=== PATIENT | male | born 1945 | race Caucasian/White ===

== ENCOUNTER 2024-09-10 09:33 | Inpatient (IN) | payer OTHER ==
--- OUTSIDE RECORDS SUMMARY | 2024-09-10 09:36 | XMS REPORT | Continuity of Care Document ---
Author Name Unknown Address [address] [facility] [address] th[address] Address [address] [facility] 1 495 [place] [address] Care Team Providers Care Sas Developer Analyst Name Role Phone HARDEEP VASQUEZ Attending Clinician Unavailable Encounters Start Date/Time End Date/Time Encounter Type Admission Type Attending Clinicians Care Facility Care Department Encounter ID Source 2021-08-02 12:48:07 Outpatient HARDEEP VASQUEZ [facility] [id number] [facility]
--- NOTE | 2024-09-10 10:20 | RAD REPORT ---
EXAMINATION: US BILATERAL LOWER EXTREMITY VENOUS DOPPLER CLINICAL INDICATION: SWELLING TECHNIQUE: Complete bilateral duplex sonography of the BILATERAL lower extremity veins was performed. The examination included compression for vein patency, color Doppler imaging and flow augmentation in response to distal compression of the distal external iliac, common femoral, femoral, popliteal, t ibial, and great and small saphenous veins. COMPARISON: No prior exam. FINDINGS: Duplex sonography testing of the veins of the BILATERAL lower extremity was performed. Color flow fadi ging shows all veins to be compressible with [id number] color filling. Pulsatile and phasic flow is present within all lower extremity deep and superficial veins examined. IMPRESSION: There is no deep vein or superficial vein thrombosis.
[2024-09-10] MEDS ORDERED: FUROSEMIDE 40 MG/4 ML VIAL ONE ×2 (10:56→16:41)
[2024-09-10 11:12] LABS: Absolute Basophils 0.1 K/uL (0-0.5); Absolute Eosinophils 0.1 K/uL (0-0.5); Absolute Lymphocytes (CBC) 1.3 K/uL (0.7-4.9); Absolute Monocytes 1.2 K/uL (0.1-1.3); Absolute Neutrophil 4.6 K/uL (1.8-8.0); Basophils % 1.1 % (0-1.3); Hematocrit 43.9 % (39.6-49.0); Hemoglobin 15.2 g/dL (13.6-17.9); Lymphocytes % 17.4 % (15.3-44.8); MCH 32.9 pg (27.0-35.0); MCHC 34.7 g/dL (32.0-36.0); MCV 94.7 fL (80-100); MPV 8.9 fL (7.6-11.3); Monocytes % 16.4 % (3.3-12.3); Neutrophils % 63.1 % (41.7-73.7); Platelets 185 thou/uL (152-406); RBC Red Blood Cell Count 4.63 M/uL (4.33-5.43); Red Cell Distribution Width 14.2 % (12.1-15.2)
[2024-09-10 11:18] LABS: PT Prothrombin Time 13.2 SECONDS (10.0-13.0); PTT, Activated Partial Thromb 30.4 SECONDS (24.3-36.9); Protime INR 1.17
[2024-09-10 11:30] LABS: Albumin 2.7 g/dL (3.4-5.0); Albumin/Globulin Ratio 0.5 (1.1-1.8); Bilirubin Total 0.8 mg/dL (0.2-1.0); Globulin 5.8 g/dL (2.3-3.5); Protein, Total 8.5 g/dL (6.4-8.2)
--- NOTE | 2024-09-10 12:06 | EDPHYS ---
Physician Documentation [facility] Name: Haroon Montana Age: 79 yrs Sex: Male : 1945 Arrival Date: 09/10/2024 Time: 09:33 Bed 14 Private MD: ED Physician Naseem Rowe HPI: 09/10 09:57 This 79 yrs old Male presents to ER via Wheelchair with complaints of Leg Swelling. rn 09:57 The patient presents with pain, swelling. The complaints affect the Right lower rn extremity. Modifying factors: The symptoms are alleviated by nothing. the symptoms are aggravated by nothing. Severity of symptoms: At their worst the symptoms were moderate, in the emergency department the symptoms are unchanged. The patient has experienced similar episodes in the past. Patient reports chronic swelling of both legs, lately he has noticed increased redness and warmth to the right lower extremity with drainage. Patient reports socks are soaked with fluid. Reports chills but no fever.. Historical: - Allergies: 09:55 No Known Allergies; ss - PMHx: 09:55 Hypertension; Hypercholesterolemia; pre diabetic; ss - PSHx: 09:56 hernia repair; ss - Immunization history:: Adult Immunizations unknown. - Infectious Disease History:: Denies. - Family history:: not pertinent. - Hospitalizations: : No recent hospitalization is reported. - Social history:: Smoking status: unknown. ROS: 09:57 Constitutional: Negative for fever, positive for chills Cardiovascular: Negative for rn chest pain, palpitations, and edema, Respiratory: Negative for shortness of breath, cough, wheezing, and pleuritic chest pain, Abdomen/GI: Negative for abdominal pain, nausea, vomiting, diarrhea, and constipation, MS/Extremity: Positive for bilateral lower extremity swelling and edema. Positive for warmth Neuro: Negative for headache, weakness, numbness, tingling, and seizure, Exam: 09:57 Constitutional: This is a well developed, well nourished patient who is awake, alert, rn and in no acute distress. Cardiovascular: Tachycardic, irregular Respiratory: Lungs have equal breath sounds bilaterally, clear to auscultation and percussion. No rales, rhonchi or wheezes noted. No increased work of breathing, no retractions or nasal flaring. Abdomen/GI: Soft, non-tender MS/ Extremity: No cyanosis. Right lower extremity increased circumference with redness and warmth compared to right lower extremity. Nonpitting edema. Right lower extremity moist with transudative fluid Neuro: Awake and alert, GCS 15 16:44 ECG was reviewed by the Attending Physician. rn Vital Signs: 09:51 Pulse 79; Resp 18; Temp 98.3(O); Pulse Ox 98% on R/A; Weight 121.56 kg; Height 5 ft. 9 ss in. ; Pain 9/10; 11:00 BP 144 / 68; Pulse 105; Resp 19; Pulse Ox 88% on R/A; Pain 10/10; ap3 11:08 Pulse Ox 96% on 2 lpm NC; ap3 12:56 BP 120 / 93; Pulse 120; Resp 19; Pulse Ox 97% on 2 lpm NC; ap3 09:51 Body Mass Index 39.58 (121.56 kg, 175.26 cm) ss 09:51 Pain Scale: Adult ss 11:00 Pain Scale: Adult ap3 11:00 placed patient on 2 liters nasal canula ap3 MDM: 09:39 Medical Screening Exam initiated rn 12:04 Differential diagnosis: Cellulitis, DVT, lymphedema. Data reviewed: vital signs, nurses rn notes, lab test result(s), radiologic studies, doppler, and as a result, I will admit patient. Consideration of Admission/Observation Patient was admitted/placed on observation. Escalation of care including admission/observation considered. Care significantly affected by the following chronic conditions: Diabetes, Hypertension. Counseling: I had a detailed discussion with the patient and/or guardian regarding the historical points, exam findings, and any diagnostic results supporting the discharge/admit diagnosis, lab results, radiology results, the need for further work-up and treatment in the hospital. 09/10 09:55 Order name: Blood Culture Adult (2) rn 09/10 09:55 Order name: CBC with Diff; Complete Time: 11:15 rn 09/10 09:55 Order name: CMP; Complete Time: 11:54 rn 09/10 09:55 Order name: Lactate w/ 2H reflex if indic.; Complete Time: 11:54 rn 09/10 09:55 Order name: Protime (+inr); Complete Time: 11:54 rn 09/10 09:55 Order name: Ptt, Activated; Complete Time: 11:54 rn 09/10 09:55 Order name: BNP; Complete Time: 11:54 rn / 13:35 Order name: Hemoglobin A1c EDMS 03/04 13:35 Order name: Thyroid Stimulating Hormone EDMS 03/ 13:35 Order name: CBC with Automated Diff EDMS 03/04 13:35 Order name: CBC with Automated Diff EDMS 03/04 13:35 Order name: CBC with Automated Diff EDMS 03/04 13:35 Order name: CBC with Automated Diff EDMS 03/04 13:35 Order name: CBC with Automated Diff EDMS 03/04 13:35 Order name: CBC with Automated Diff EDMS 03/04 13:35 Order name: Comprehensive Metabolic Panel EDMS 03/ 13:35 Order name: Comprehensive Metabolic Panel EDMS 03/ 13:35 Order name: Comprehensive Metabolic Panel EDMS 03/04 13:35 Order name: Comprehensive Metabolic Panel EDMS 03/04 13:35 Order name: Comprehensive Metabolic Panel EDMS 03/04 13:35 Order name: Comprehensive Metabolic Panel EDMS 03/ 13:35 Order name: Lipid Profile EDMS 03/ 13:35 Order name: Lipid Profile EDMS 03/ 09:56 Order name: Extrem Venous W Compression Rohan US; Complete Time: 10:22 rn 09/10 13:47 Order name: Echo with Doppler EDMS / 13:35 Order name: [facility] EDMS / 09:55 Order name: Accucheck; Complete Time: 11:06 rn 09/10 09:55 Order name: Cardiac monitoring; Complete Time: 11:06 rn 09/10 09:55 Order name: EKG - Nurse/Tech; Complete Time: 11:06 rn 09/10 09:55 Order name: IV Saline Lock - Large Bore; Complete Time: 11:06 rn 09/10 09:55 Order name: Labs collected and sent; Complete Time: 11:06 rn 09/10 09:55 Order name: O2 Per Protocol; Complete Time: 11:06 rn 09/10 09:55 Order name: O2 Sat Monitoring; Complete Time: 11:06 rn 09/10 09:55 Order name: Vital Signs; Complete Time: 11:07 rn EC:44 Rate is 124 beats/min. Rhythm is irregular. QRS Hope is Normal. QT interval is normal. rn No Q waves. T waves are Normal. No ST changes noted. Clinical impression: Atrial Fibrillation. Interpreted by me. Reviewed by me. Administered Medications: 11:06 Drug: Furosemide IVP 40 mg IVP once; give over 2 minutes Route: IVP; Site: right ap3 antecubital; 13:59 Follow up: Response: No adverse reaction ap3 12:45 Drug: Magnesium Sulfate IVPB 1 grams IVPB once over 1 hrs Route: IVPB; Infused Over: 1 ap3 hrs; Site: right antecubital; 13:59 Follow up: IV Status: Completed infusion; IV Intake: 100ml ap3 13:59 Drug: vancoMYCIN IVPB 1 grams IVPB once over 2 hrs Route: IVPB; Infused Over: 2 hrs; ap3 Site: right antecubital; 22:13 Follow up: IV Status: Completed infusion; IV Intake: 250ml rg5 Disposition Summary: 09/10/24 12:05 Hospitalization Ordered Notes: Hospitalization Status: Inpatient Admission rn Provider: Estuardo Nowak rn Condition: Stable rn Problem: new rn Symptoms: are unchanged rn Bed/Room Type: Standard rn Location: Telemetry/MedSurg (Inpatient)(09/10/24 20:48) cg Room Assignment: 208(09/10/24 20:48) cg Diagnosis - Cellulitis of right lower limb rn - Lymphedema, not elsewhere classified rn Forms: - Medication Reconciliation Form rn - SBAR form rn - Leadership Thank You Letter rn Signatures: Dispatcher [employer] EDNE Naseem Rowe MD MD rn Blanchard, Shelby, RN RN Eliz Cherry RN RN Mary Fischer RN RN ap3 Kailyn Kincaid RN RN [email or web address] Clay Montero RN rg5 Corrections: (The following items were deleted from the chart) 09: 09:55 BLOOD CULTURE*+BA.LAB.BRZ ordered. EDMS EDMS 09:56 09:55 CBC+H.LAB.BRZ ordered. EDMS EDMS 09:56 09:55 COMPREHENSIVE METABOLIC PANEL+C.LAB.BRZ ordered. EDMS EDMS 09:56 09:55 LACTATE+C.LAB.BRZ ordered. EDMS EDMS 09:56 09:56 PROTIME (+INR)+COAG.LAB.BRZ ordered. EDMS EDMS 09: 09:56 PTT, ACTIVATED+COAG.LAB.BRZ ordered. EDMS EDMS 09:56 09:56 PROBNP+C.LAB.BRZ ordered. EDNE EDMS 12:04 09:57 Constitutional: This is a well developed, well nourished patient who is awake, rn alert, and in no acute distress. Cardiovascular: Regular rate and rhythm. No pulse deficits. Respiratory: Lungs have equal breath sounds bilaterally, clear to auscultation and percussion. No rales, rhonchi or wheezes noted. No increased work of breathing, no retractions or nasal flaring. Abdomen/GI: Soft, non-tender MS/ Extremity: No cyanosis. Right lower extremity increased circumference with redness and warmth compared to right lower extremity. Nonpitting edema. Right lower extremity moist with transudative fluid Neuro: Awake and alert, GCS 15 rn 13:48 12:05 Telemetry/MedSurg (Inpatient) rn kb3 13:48 12:05 rn kb3 20:48 13:48 [facility] ER HOLD kb3 cg 20:48 13:48 ERHOLD- kb3 cg
--- NOTE | 2024-09-10 12:06 | ER ---
Nurse's Notes [facility] Name: Haroon Montana Age: 79 yrs Sex: Male : 1945 Arrival Date: 09/10/2024 Time: 09:33 Bed 14 Private MD: Diagnosis: Cellulitis of right lower limb;Lymphedema, not elsewhere classified Presentation: 09/10 09:51 Chief complaint: Patient states: bilateral leg swelling, redness and pain x 2-3 months. ss Coronavirus screen: Client denies travel out of the [place] in the last 14 days. Ebola Screen: Patient denies exposure to infectious person. Patient denies travel to an Ebola-affected area in the 21 days before illness onset. Initial Sepsis Screen: Does the patient meet any 2 criteria? No. Patient's initial sepsis screen is negative. Does the patient have a suspected source of infection? No. Patient's initial sepsis screen is negative. Risk Assessment: Do you want to hurt yourself or someone else? Patient reports no desire to harm self or others. Onset of symptoms is unknown. 09:51 Method Of Arrival: Wheelchair ss 09:51 Acuity: SILVIO 3 ss Historical: - Allergies: 09:55 No Known Allergies; ss - PMHx: 09:55 Hypertension; Hypercholesterolemia; pre diabetic; ss - PSHx: 09:56 hernia repair; ss - Immunization history:: Adult Immunizations unknown. - Infectious Disease History:: Denies. - Family history:: not pertinent. - Hospitalizations: : No recent hospitalization is reported. - Social history:: Smoking status: unknown. Screenin:31 Abuse screen: Denies threats or abuse. Nutritional screening: No deficits noted. ap3 Tuberculosis screening: No symptoms or risk factors identified. 12:57 [facility] ED Fall Risk Assessment (Adult) History of falling in the last 3 months, ap3 including since admission No falls in past 3 months (0 pts) Confusion or Disorientation No (0 pts) Intoxicated or Sedated No (0 pts) Impaired Gait Yes (1 pt) Mobility Assist Device Used Yes (1 pt) Altered Elimination No (0 pt) Score/Fall Risk Level 0 - 2 = Low Risk Oriented to surroundings, Maintained a safe environment, Educated pt \T\ family on fall prevention, incl call for assistance when getting out of bed, Assessed \T\ reinforced patient's understanding of fall precautions, Hourly rounding (assess needs \T\ fall precautionary measures) done, Used ambulatory aids as needed (educated on \T\ assisted with). Assessment: 11:30 General: Appears uncomfortable, Behavior is calm, cooperative, appropriate for age. ap3 Pain: Complains of pain in right leg and left leg Pain currently is 10 out of 10 on a pain scale. Neuro: Level of Consciousness is awake, alert, obeys commands, Oriented to person, place, time, situation. Cardiovascular: Patient's skin is warm and dry. Respiratory: Airway is patent Respiratory effort is even, unlabored, Respiratory pattern is regular, symmetrical. Derm: Skin is red, swollen in bilateral extremities. Vital Signs: 09:51 Pulse 79; Resp 18; Temp 98.3(O); Pulse Ox 98% on R/A; Weight 121.56 kg; Height 5 ft. 9 ss in. ; Pain 9/10; 11:00 BP 144 / 68; Pulse 105; Resp 19; Pulse Ox 88% on R/A; Pain 10/10; ap3 11:08 Pulse Ox 96% on 2 lpm NC; ap3 12:56 BP 120 / 93; Pulse 120; Resp 19; Pulse Ox 97% on 2 lpm NC; ap3 09:51 Body Mass Index 39.58 (121.56 kg, 175.26 cm) ss 09:51 Pain Scale: Adult ss 11:00 Pain Scale: Adult ap3 11:00 placed patient on 2 liters nasal canula ap3 ED Course: 09:38 Patient arrived in ED. mr 09:39 Naseem Rowe MD is Attending Physician. rn 09:55 Triage completed. ss 09:55 Arm band placed on right wrist. ss 10:18 Extrem Venous W Compression Rohan US In Process Unspecified. EDMS 11:05 Mary Fischer, SANTOS is Primary Nurse. ap3 11:05 EKG done, by ED staff, reviewed by Naseem Rowe MD. Inserted saline lock: 22 gauge in ap3 right antecubital area, using aseptic technique. Blood collected. Flushed with 10 mL NS. 11:06 Bed in low position. Call light in reach. Side rails up X2. Adult w/ patient. Client ap3 placed on continuous cardiac and pulse oximetry monitoring. NIBP monitoring applied. panel monitor on. Pulse ox on. NIBP on. Door closed. Noise minimized. Warm blanket given. Pillow given. 12:05 Estuardo Nowak PA is Hospitalizing Provider. rn 12:56 Admitting physician to see patient. ap3 12:57 Provided Education on: medications prior to administration. ap3 15:03 No provider procedures requiring assistance completed. Patient admitted, IV remains in ap3 place. Administered Medications: 11:06 Drug: Furosemide IVP 40 mg IVP once; give over 2 minutes Route: IVP; Site: right ap3 antecubital; 13:59 Follow up: Response: No adverse reaction ap3 12:45 Drug: Magnesium Sulfate IVPB 1 grams IVPB once over 1 hrs Route: IVPB; Infused Over: 1 ap3 hrs; Site: right antecubital; 13:59 Follow up: IV Status: Completed infusion; IV Intake: 100ml ap3 13:59 Drug: vancoMYCIN IVPB 1 grams IVPB once over 2 hrs Route: IVPB; Infused Over: 2 hrs; ap3 Site: right antecubital; 22:13 Follow up: IV Status: Completed infusion; IV Intake: 250ml rg5 Medication: 12:57 VIS not applicable for this client. ap3 Intake: 13:59 IV: 100ml; Total: 100ml. ap3 22:13 IV: 250ml; Total: 350ml. rg5 Outcome: 12:05 Decision to Hospitalize by Provider. rn 15:03 Admitted to ER Hold. Please see [facility] for further documentation. ap3 15:03 Condition: good 15:03 Discharge instructions given to patient, family, Instructed on the need for admit, 22:13 Patient left the ED. rg5 Signatures: Dispatcher [employer] EDLA Radha Robbins, Reg Reg mr Naseem Rowe MD MD rn Blanchard, Shelby, RN RN ss Prokisch, Amanda, RN RN ap3 Clay Montero RN RN rg5 Corrections: (The following items were deleted from the chart) 11:07 11:07 BP 144 / 68; Pulse 105bpm; Resp 19bpm; Pulse Ox 88% RA; Pain 10/10, Adult; placed ap3 patient on 2 liters nasal canula; ap3
[2024-09-10] MEDS ORDERED: NA CHLORIDE 0.9% 250 ML ONE ×2 (12:33→16:11)
[2024-09-10] MEDS ORDERED: VANCOMYCIN 1 GM/VIAL ONE ×2 (12:33→16:11)
[2024-09-10] MEDS ORDERED: MAGNESIUM SULFATE 1 gm IVPB 1 GM/100 ML BAG IV ONE (12:33)
[2024-09-10] MEDS ORDERED: ACETAMINOPHEN 500 MG TAB PO PRN (13:28)
[2024-09-10] MEDS ORDERED: ONDANSETRON 4 MG/2 ML VIAL IV PRN (13:28)
--- NOTE | 2024-09-10 13:44 | P.HP ---
Certification for Inpatient With expected LOS: >2 Midnights Patient will require the following post-hospital care: None Practitioner: I am a practitioner with admitting privileges, knowledge of patient current condition, hospital course, and medical plan of care. Services: Services provided to patient in accordance with Admission requirements found in Title 42 Section 412.3 of the Code of Federal Regulations Patient History Date of Service: 09/10/24 Reason for admission: Cellulitis History of Present Illness: 79-year-old patient with history of hypertension, off medications, hyperlipidemia, and prediabetes, presented with bilateral lower extremity pain and redness, on further questioning, he has chronic bilateral lower extremity edema, for the last 1 month or so right leg is more swollen than the left leg, started draining approximately 1 month back on the right leg with small open wound, complaining of bilateral leg pain as well but the pain is getting worse in the last 2 weeks, he also noticed redness 2 days back on the right leg so he present to the emergency room, he was found to have cellulitis so we were asked to admit him. No headache or blackouts. No double vision or blurry vision. No cough or sputum production. No chest pain or shortness of breath. No nausea or vomiting. No abdominal pain. No constipation or diarrhea. No blood in the urine or stool. No fever. No joint pains. No recent change in the weight. Review of systems: All other 10 point review of systems are negative other than as mentioned above. Allergies and medications: Reviewed, as per med rec EMR. Past medical history: Hypertension but off medications, hyperlipidemia, prediabetes, obesity Past surgical history: Hiatal hernia repair Social history: No drugs. Positive for smoking and daily alcohol use Family history: Sister and brother had a history of PR, sister and father had a history of CVA Physical examination: Vital signs: Reviewed, as per EMR. General appearance: Alert and comfortable HEENT: Extraocular movements intact, oral mucosa moist. CVS: Normal S1-S2 Lungs: Clear to auscultation bilaterally Abdomen: Soft, bowel sounds present, no tenderness Extremities: 2-3+ lower extremity edema of the right leg, 1-2+ edema of left leg, he has open wounds on both legs, no drainage on the left leg, small amount of drainage from the right leg. Right leg is erythematous. Chronic venous stasis changes in both legs. CHIMNEY SWEEPER: Moves all 4 extremities, no obvious focal deficits Musculoskeletal: No obvious joint swelling or tenderness Allergies No Known Allergies Allergy (Unverified 06/25/17 17:55) - Past Medical/Surgical History Diabetic: No Physical Examination - Studies Laboratory Data (last 24 hrs) 09/10/24 09/10/24 09/10/24 10:50 10:50 10:50 WBC 7.40 Hgb 15.2 Hct 43.9 Plt Count 185 PT 13.2 H INR 1.17 APTT 30.4 Sodium 136 Potassium 4.0 BUN 25 H Creatinine 1.42 H Glucose 120 H Total Bilirubin 0.8 AST 30 ALT 31 Alkaline Phosphatase 99 Assessment and Plan - Plan Assessment and plan: 1. Cellulitis of right lower extremity,: Start broad-spectrum antibiotics for now, monitor clinical response and deescalate antibiotics, ultrasound negative for DVT. 2. Bilateral lower extremity edema: Looks like lymphedema, I will request wound care to see him due to superficial wounds, he will need lymphedema clinic follow-up as an outpatient, start IV Lasix for now to help with the swelling, will get an echocardiogram to make sure he does not have any heart failure. 3. CKD 3A: Monitor closely. 4. Hypertension: Off medications, monitor blood pressure closely. 5. Hyperlipidemia 6. Prediabetes: Monitor sugars closely, check A1c 7. Obesity: Follow-up with PCP DVT prophylaxis: Lovenox CODE STATUS: He would like to be full code. I did discuss all the above mentioned plan with the patient and multiple family members at bedside, they understand and agrees with the plan. I discussed advanced directives with the patient, patient's Ernestine is the POA. - Advance Directives Does patient have a Living Will: No Does patient have a Durable POA for Healthcare: No - Code Status/Comfort Care Code Status Assessed: Yes Code Status: Full Code
[2024-09-10] MEDS: CEFEPIME 2 GM in NA CHLORIDE 0.9% 100 ML IV SCH (14:00)
[2024-09-10] MEDS ORDERED: VANCOMYCIN 2 GM in NA CHLORIDE 0.9% 500 ML IVPB ONE (14:00)
[2024-09-10] MEDS ORDERED: VANCOMYCIN 1 GM in NA CHLORIDE 0.9% 250 ML IVPB SCH (14:00)
[2024-09-10 14:23] VITALS: O2SAT 97
[2024-09-10] MEDS: VANCOMYCIN 1 GM in NA CHLORIDE 0.9% 250 ML IVPB SCH (14:30)
[2024-09-10] MEDS ORDERED: NA CHLORIDE 0.9% 100 ML ONE (16:41)
[2024-09-10] MEDS ORDERED: CEFEPIME 2 GM VIAL ONE (16:41)
[2024-09-10] MEDS: FUROSEMIDE 40 MG/4 ML VIAL IV SCH (17:00)
[2024-09-11 02:36] VITALS: BMI 42.0
[2024-09-11 05:16] LABS: Absolute Basophils 0.1 K/uL (0-0.5); Absolute Eosinophils 0.2 K/uL (0-0.5); Absolute Lymphocytes (CBC) 1.7 K/uL (0.7-4.9); Absolute Monocytes 1.5 K/uL (0.1-1.3); Absolute Neutrophil 6.9 K/uL (1.8-8.0); Basophils % 0.9 % (0-1.3); Eosinophils % 1.9 % (0-4.4); Hemoglobin 15.8 g/dL (13.6-17.9); Lymphocytes % 15.8 % (15.3-44.8); MCH 31.8 pg (27.0-35.0); MCHC 32.9 g/dL (32.0-36.0); MCV 96.9 fL (80-100); MPV 8.8 fL (7.6-11.3); Monocytes % 14.8 % (3.3-12.3); Neutrophils % 66.6 % (41.7-73.7); Platelets 219 thou/uL (152-406); RBC Red Blood Cell Count 4.95 M/uL (4.33-5.43); Red Cell Distribution Width 14.3 % (12.1-15.2)
[2024-09-11 05:40] LABS: Albumin 2.7 g/dL (3.4-5.0); Albumin/Globulin Ratio 0.5 (1.1-1.8); Anion Gap 11.8 mEq/L (5.0-15.0); Bilirubin Total 1.2 mg/dL (0.2-1.0); Globulin 5.9 g/dL (2.3-3.5); Potassium 3.8 mEq/L (3.5-5.1); Protein, Total 8.6 g/dL (6.4-8.2)
[2024-09-11 05:42] LABS: Thyroid Stimulating Hormone 4.43 uIU/mL (0.358-3.740)
[2024-09-11] MEDS: ENOXAPARIN 40 MG/0.4 ML SQ SCH (10:05)
--- NOTE | 2024-09-11 11:06 | EKG ---
Test Date: 2024-09-10 Test Time: 10:34:58 Head Pumper: ALP MEASUREMENT RESULTS: Intervals: Rate: 124 MA: QRSD: 92 QT: 340 QTc: 488 [place]: P: 51 MA: QRS: 36 T: 49 INTERPRETIVE STATEMENTS: Atrial fibrillation with PVCs Otherwise normal ECG Compared to ECG 06/25/2017 16:58:33 Atrial fibrillation no longer present Electronically Signed On 09-11-24 11:05:14 ORACLE HRMS DEVELOPER by Miguel Whitaker
--- NOTE | 2024-09-11 11:06 | EKG ---
Test Date: 2024-09-10 Test Time: 10:35:38 Generator Operator Straight Bevel Gear: ALP MEASUREMENT RESULTS: Intervals: Rate: 113 CO: QRSD: 92 QT: 346 QTc: 474 [place]: P: 74 CO: QRS: 38 T: 49 INTERPRETIVE STATEMENTS: Atrial fibrillation Otherwise normal ECG Compared to ECG 09/10/2024 10:34:58 No significant changes Electronically Signed On 09-11-24 11:04:56 DELIVERY DEPARTMENT SUPERVISOR by Miguel Whitaker
[2024-09-11 12:08] VITALS: BP 112/61; TEMP 98
[2024-09-11] MEDS: VANCOMYCIN 1.25 GM in NA CHLORIDE 0.9% 250 ML IVPB SCH (13:05)
--- NOTE | 2024-09-13 06:59 | ECHO ---
HEIGHT: 5 ft 8 in WEIGHT: 276 lb 10.882 oz DATE OF STUDY: 09/11/[address]: Estuardo Nowak 2-DIMENSIONAL: YES M.MODE: YES DOPPLER: YES COLOR FLOW: YES TDS: YES PORTABLE: YES DEFINITY: BUBBLE STUDY: DIAGNOSIS: LEG EDEMA CARDIAC HISTORY: CATHERIZATION: NO SURGERY: NO PROSTHETIC VALVE: NO PACEMAKER: NO MEASUREMENTS (cm) DIASTOLIC (NORMALS) SYSTOLIC (NORMALS) IVSd 1.0 (0.6-1.2) LA Diam 4.7 (1.9-4.0) LVEF 60-65% LVIDd 2.6 (3.5-5.7) LVIDs 1.6 (2.0-3.5) %FS LVPWd 1.3 (0.6-1.2) Ao Diam 4.0 (2.0-3.7) 2 DIMENSIONAL ASSESSMENT: RIGHT ATRIUM: NORMAL LEFT ATRIUM: SEVERELY DILATED RIGHT VENTRICLE: NORMAL LEFT VENTRICLE: NORMAL TRICUSPID VALVE: TRACE TRICUSPID REGURGITATION MITRAL VALVE: SEVERE MITRAL ANNULAR CALCIFICATION PULMONIC VALVE: NOT SEEN AORTIC VALVE: CALCIFIED PERICARDIAL EFFUSION: NONE AORTIC ROOT: MILDLY DILATED LEFT VENTRICULAR WALL MOTION: NORMAL DOPPLER/COLOR FLOW: GRADE II DIASTOLIC DYSFUNCTION COMMENTS: 1. SEVERELY DILATED LEFT ATRIUM 2. NORMAL LEFT VENTRICULAR SYSTOLIC FUNCTION, EJECTION FRACTION 60-65%, NORMAL WALL MOTION 3. GRADE II DIASTOLIC DYSFUNCTION 4. HEAVILY CALCIFIED AORTIC VALVE WITH MODERATE STENOSIS (AORTIC VALVE AREA 1.3 CENTIMETERS SQUARED, MEAN GRADIENT 28 mmHg) TECHNOLOGIST: LOVE CHE
== END 2024-09-11 16:41 | disposition home health service (06) | DRG 603 ==
LOC: ER 09:33 → ERHOLD 13:28 → 2ND 21:15
PROVIDERS: ADMIT Hospitalist; ATTEND Hospitalist
PROC: 0T9B70Z Drainage of Bladder with Drainage Device, Via Natural or Artificial Opening (ICD-10-PCS; principal; 2024-09-11)
DX: L03.115 Cellulitis of right lower limb (principal); Z68.41 Body mass index [BMI] 40.0-44.9, adult; E66.9 Obesity, unspecified; E78.00 Pure hypercholesterolemia, unspecified; I12.9 Hypertensive chronic kidney disease with stage 1 through stage 4 chronic kidney disease, or unspecified chronic kidney disease; N18.31 Chronic kidney disease, stage 3a; I89.0 Lymphedema, not elsewhere classified; R73.03 Prediabetes
CPT/HCPCS: 36415; 80053; 80061; 83036; 83605; 83880; 84439; 84443; 85025; 85610; 85730; 87040; 87205; 93005; 93306; 93970; 96365; 96366; 96367; 96375; 99285; J0692; J1650; J1940; J3370; J3475; J7040; J7050

== ENCOUNTER 2024-11-11 13:11 | Emergency (ER) | payer OTHER ==
--- OUTSIDE RECORDS SUMMARY | 2024-11-11 13:14 | XMS REPORT | Continuity of Care Document ---
Author Name Unknown Address [address] [place] [address] [place] [address] 1 [address] [place] [address] Care Team Providers Care Washer Assembler Name Role Phone HARDEEP VASQUEZ Attending Clinician Unavailable Encounters Start Date/Time End Date/Time Encounter Type Admission Type Attending Clinicians Care Facility Care Department Encounter ID Source 2021-08-02 12:48:07 Outpatient HARDEEP VASQUEZ [facility] [id number] [facility]
--- NOTE | 2024-11-11 14:12 | RAD REPORT ---
EXAMINATION: Head C Spine Mpr Wo Con CLINICAL INDICATION: Male, 79 years old. fall, head injury, left ribs, left pelvis TECHNIQUE: Axial CT images from the skull base to the vertex without intravenous contrast. Axial CT i mages through the cervical spine were obtained without intravenous contrast. Sagittal and coronal reformatted images were created from the data set. Coronal and sagittal reformatted images were creat ed from the data set. One or more of the following dose reduction techniques were used: Automated exposure control, adjustment of the mA and/or kV according to patient size, and/or iterative reconstr uction. Unless otherwise specified, incidental findings do not require dedicated imaging follow-up. [id number]. COMPARISON: No prior exam. FINDINGS: Head: INTRACRANIAL: No acute intracranial hemorrhage. No hydrocephalus. No mass effect or midline shift. Mi ld chronic small vessel ischemic changes.Mild cerebral atrophy. VASCULATURE: No visualized abnormalities in the arteries or dural venous sinuses. SCALP/SKULL: No calvarial fracture identified. No acute soft tissue abnormality. SINUSES: The visualized paranasal sinuses are mostly clear. No significant mastoid fluid. Cervical spine: ALIGNMENT: Trace anterolisthesis of C3 on C4. BONE: Vertebral body heights are maintained. No aggressive osseous lesions. DEGENERATIVE: Multilevel cervical spondylosis with evidence of bilateral neural foraminal narrowing. No high grade central spinal stenosis. Neural foraminal narrowing is severe bilaterally at C4-5, C5-6, and C6-7. SOFT TISSUE: No significant abnormalities in the soft tissue of the neck. The visualized lung apices are clear. IMPRESSION: No acute intracranial abnormality. No acute fracture or traumatic malalignment of the cervical spine.
--- NOTE | 2024-11-11 14:33 | RAD REPORT ---
Exam:Humerus Left CLINICAL HISTORY: Left arm pain FINDINGS: No fracture or dislocation seen Osteoporosis
--- NOTE | 2024-11-11 14:34 | RAD REPORT ---
Exam:Hip Left 2 View HISTORY: Left hip pain FINDINGS: No fracture or dislocation seen Osteoporosis. If the patient continues to have symptoms to suggest an occult fracture then MRI would be recommended
--- NOTE | 2024-11-11 14:34 | RAD REPORT ---
EXAM: Chest Abd Pelvis Wo Con CLINICAL INDICATION: Male, 79 years old FALL TECHNIQUE: CT chest, abdomen and pelvis was performed, without IV contrast, as per department protoco l. Axial, sagittal and coronal reconstructions were obtained. One or more of the following dose reduction techniques were used: Automated exposure control, adjustment of the mA and/or kV according to the patient size, and/or iterative reconstruction. Unless otherwise specified, incidental findings do not require dedicated imaging follow-up. [id number]. COMPARISON: No prior exam. FINDINGS: The lack of intravenous contrast limits the sensitivity of this exam for evaluation of solid visceral organs, vascular structures, and retroperitoneum. ---THORAX--- LOWER NECK AND CHEST WALL: Visualized thyroid gland and soft tissues are normal. LUNGS AND AIRWAYS: Intralobular septal thickening is present. Dependent atelectasis..No dominant or c learly suspicious nodule identified. PLEURA: No pleural effusion. No pneumothorax. MEDIASTINUM AND LYMPH NODES: No mediastinal mass or fluid collection. Normal size mediastinal, hilar, and axillary lymph nodes. Surgical changes at the gastroesophageal junction. THORACIC AORTA: No thoracic aortic aneurysm. Atherosclerotic changes are present. PULMONARY ARTERIES: Enlarged main pulmonary arteries could indicate pulmonary artery hypertension. Un able to evaluate for pulmonary emboli due to either protocol or lack of contrast. HEART: Mild cardiomegaly. Severe coronary artery calcifications.No significant pericardial effusion. Aortic valve and mitral annular calcifications. ---ABDOMEN/PELVIS--- UPPER GI: No significant abnormality. LIVER: Hepatic steatosis, but otherwise unremarkable. GALLBLADDER/BILE DUCTS: No biliary ductal dilatation.? PANCREAS: No mass, ductal dilation, or anna-pancreatic fluid. SPLEEN: Unremarkable. ADRENALS: No adrenal masses. KIDNEYS AND URETERS: No hydronephrosis.No suspicious renal mass.No renal calculi. ABDOMINAL AORTA AND OTHER VESSELS: Moderate atherosclerotic changes without aortic aneurysm. PERITONEUM: No abnormal free fluid. No free air. LYMPH NODES: No pathologic lymphadenopathy. ABDOMINAL WALL: Unremarkable SMALL BOWEL/COLON: Small bowel has normal course and caliber. No colonic wall thickening or pericolon ic inflammatory changes. Mild diverticulosis without diverticulitis. URINARY BLADDER: Circumferential bladder wall thickening which could reflect cystitis. Correlate with urinalysis. REPRODUCTIVE ORGANS: Moderate prostatomegaly. ---COMBINED--- MUSCULOSKELETAL: Nondisplaced left inferior pubic ramus fracture. Statistically, a second fracture sh ould be present involving the ring but it is not visualized. Remote bilateral rib fractures. Acute left seventh, ninth rib fractures. Mild compression deformity at the T3 level is age indeterminant. G rade 1 anterolisthesis of L5 on S1. Postoperative changes at the left posterior eighth rib. ADDITIONAL FINDINGS: None. IMPRESSION: Acute left inferior pubic ramus fracture which is minimally displaced. A couple of left-sided rib fra ctures are probably acute and nondisplaced. Multiple remote bilateral rib fractures noted. T3 compression fracture with less than 20% loss of height is age indeterminate. MRI could better establi sh acuity if clinically indicated. Incidental findings as noted above,
[2024-11-11 14:37] LABS: PTT, Activated Partial Thromb 28.2 SECONDS (27.2-37.4); Protime INR 1.15
[2024-11-11 14:38] LABS: Absolute Basophils 0.1 K/uL (0-0.5); Absolute Eosinophils 0.5 K/uL (0-0.5); Absolute Lymphocytes (CBC) 1.4 K/uL (0.7-4.9); Absolute Monocytes 1.1 K/uL (0.1-1.3); Absolute Neutrophil 6.1 K/uL (1.8-8.0); Basophils % 1.1 % (0-1.3); Eosinophils % 5.1 % (0-4.4); Hematocrit 45.8 % (39.6-49.0); Hemoglobin 15.4 g/dL (13.6-17.9); Lymphocytes % 15.3 % (15.3-44.8); MCH 31.7 pg (27.0-35.0); MCHC 33.7 g/dL (32.0-36.0); Monocytes % 11.6 % (3.3-12.3); Neutrophils % 66.9 % (41.7-73.7); Platelets 142 thou/uL (152-406); RBC Red Blood Cell Count 4.87 M/uL (4.33-5.43); Red Cell Distribution Width 14.6 % (12.1-15.2)
[2024-11-11 14:46] LABS: Anion Gap 8.9 mEq/L (5.0-15.0); Potassium 3.9 mEq/L (3.5-5.1)
--- NOTE | 2024-11-11 15:51 | EDPHYS ---
Physician Documentation [facility] Name: Haroon Montana Age: 79 yrs Sex: Male : 1945 Arrival Date: 11/11/2024 Time: 13:11 Bed 2 Private MD: ED Physician Naseem Rowe HPI: 11/11 13:35 This 79 yrs old Male presents to ER via EMS with complaints of LEFT RIB PAIN. rn 13:35 The patient or guardian reports chest pain that is located primarily in the anterior rn chest wall. Onset: The symptoms/episode began/occurred 3 day(s) ago. Patient reports fall from seated position 3 days ago, was trying to change his dressing by himself. Fell onto right side with arm tucked in and reports injury to right ribs and right hip/pelvis. Has been ambulatory since fall. Reports majority of pain is to left ribs. No hemoptysis.. Historical: - Allergies: 13:14 No Known Allergies; bp - PMHx: 13:14 Hypercholesterolemia; Hypertension; PRE DIABETIC; bp - PSHx: 13:14 hernia repair; bp - Immunization history:: Adult Immunizations up to date. - Infectious Disease History:: Denies. - Social history:: Smoking status: Patient denies any tobacco usage or history of. - Family history:: not pertinent. - Hospitalizations: : The patient was recently seen at [facility]. ROS: 13:35 Constitutional: Negative for fever, chills, and weight loss, Neck: Negative for injury, rn pain, and swelling, Cardiovascular: Positive for traumatic left-sided chest pain Respiratory: Negative for shortness of breath, cough, wheezing Abdomen/GI: Negative for abdominal pain, nausea, vomiting, diarrhea, and constipation, Back: Negative for injury and pain, MS/Extremity: Positive for left hip pain Skin: Negative for injury, rash, and discoloration, Neuro: Negative for headache, weakness, numbness, tingling, and seizure, Exam: 13:35 Constitutional: This is a well developed, well nourished patient who is awake, alert, rn and in no acute distress. Head/Face: Normocephalic, atraumatic. Neck: No midline cervical tenderness Cardiovascular: Regular rate and rhythm. No pulse deficits. Respiratory: No increased work of breathing, no retractions or nasal flaring. Abdomen/GI: Soft, nontender MS/ Extremity: Pulses equal, no cyanosis. Neurovascular intact. No deformity or focal tenderness of either extremity Neuro: Awake and alert, GCS 15, oriented to person, place, time, and situation. Cranial nerves II-XII grossly intact. Motor strength 5/5 in all extremities. Sensory grossly intact Vital Signs: 13:12 BP 150 / 60; Pulse 90; Resp 18; Temp 98; Pulse Ox 99% ; bp 14:48 BP 172 / 122; Pulse 97; Resp 17; Pulse Ox 98% on R/A; hb 15:45 BP 161 / 100; rn 15:47 BP 156 / 107; Pulse 100; Resp 20; Pulse Ox 100% ; bp 17:14 BP 156 / 95; Pulse 89; Resp 23; Pulse Ox 95% ; bp MDM: 13:14 Medical Screening Exam initiated rn 15:45 Differential diagnosis: Blunt Chest Trauma Chest Wall Contusion Chest Wall Injury rn Pneumothorax Pulmonary Contusion Rib Fracture. Data reviewed: vital signs, nurses notes, lab test result(s), radiologic studies, CT scan, plain films, and as a result, I will discharge patient. Counseling: I had a detailed discussion with the patient and/or guardian regarding the historical points, exam findings, and any diagnostic results supporting the discharge/admit diagnosis, radiology results, the need for outpatient follow up, to return to the emergency department if symptoms worsen or persist or if there are any questions or concerns that arise at home. Response to treatment: the patient's symptoms have mildly improved after treatment, and as a result, I will discharge patient. Special discussion: I discussed with the patient/guardian in detail that at this point there is no indication for admission to the hospital. It is understood, however, that if the symptoms persist or worsen the patient needs to return immediately for re-evaluation. ED course: Patient with 2 nondisplaced rib fractures on the left side as well as inferior pubic ramus fracture. Will I have personally reviewed all of the results, including but not limited to blood tests and imaging deemed necessary to safely discharge this patient at this time. All results given to and printed out for patient. I personally went over all the results with the patient and answered all questions. Patient will follow-up with PCP and or specialist as discussed. Return precautions given and understood. In care of family. No indication for emergent procedure or surgery. No pneumothorax or hemothorax on imaging per my interpretation. Patient has Tylenol with codeine prescription but does not want to take pain medication. Return precautions given and understood. Will send home with incentive spirometer and discussed at length what not to do with acute rib fractures. Patient also has a walker/wheelchair/scooter at home to aid with mobility.. 11/11 13:20 Order name: CBC with Diff; Complete Time: 14:41 rn 11/11 13:20 Order name: Basic Metabolic Panel; Complete Time: 15:08 rn 11/11 13:20 Order name: Protime (+inr); Complete Time: 14:41 rn 11/11 13:20 Order name: Ptt, Activated; Complete Time: 14:41 rn 11/11 13:20 Order name: XRAY Hip LEFT 2 view; Complete Time: 14:41 rn 11/11 13:20 Order name: XRAY Humerus LEFT; Complete Time: 14:41 rn 11/11 13:28 Order name: Head C Spine Mpr Wo Con; Complete Time: 14:41 EDNJ 11/11 13:29 Order name: Chest Abd Pelvis Wo Con; Complete Time: 14:41 EDNJ 11/11 15:49 Order name: INCENTIVE SPIROMETRY rn 11/11 13:20 Order name: IV Start; Complete Time: 13:33 rn Administered Medications: 16:04 Drug: HYDROcodone-acetaminophen PO 5 mg-325 mg 1 tabs PO once Route: PO; bp 17:31 Follow up: Response: No adverse reaction bp Disposition Summary: 11/11/24 15:50 Discharge Ordered Notes: Location: Home rn Problem: new rn Symptoms: have improved rn Condition: Stable rn Diagnosis - Multiple fractures of ribs, left side rn - Acute, closed, nondisplaced left inferior pubic ramus fracture rn Followup: rn - With: Private Physician - When: As needed - Reason: Recheck today's complaints, Re-evaluation by your physician Discharge Instructions: - Discharge Summary Sheet rn - Simple Pelvic Fracture, Adult rn - Rib Fracture rn Forms: - Medication Reconciliation Form rn - Antibiotic international controller - Prescription Opioid Use rn - Patient Portal Instructions rn - Leadership Thank You Letter rn Signatures: Dispatcher [facility] Naseem Rowe MD MD rn Peltier, Brian, RN RN bp Corrections: (The following items were deleted from the chart) 13:20 13:20 CBC+H.LAB.BRZ ordered. EDMS EDMS 13:20 13:20 BASIC METABOLIC PANEL+C.LAB.BRZ ordered. EDMS EDMS 13:20 13:20 PROTIME (+INR)+COAG.LAB.BRZ ordered. EDMS EDMS 13:20 13:20 PTT, ACTIVATED+COAG.LAB.BRZ ordered. EDMS EDMS 13:20 13:20 Head C Spine Cap Wo Con+CT.RAD.BRZ ordered. EDMS EDMS 13:20 13:20 Hip Left 2 View+RAD.RAD.BRZ ordered. EDMS EDMS 13:20 13:20 Humerus Left+RAD.RAD.BRZ ordered. EDMS EDMS 13:28 13:28 Chest Abd Pelvis Wo Con ordered. EDMS EDMS
--- NOTE | 2024-11-11 15:51 | ER ---
Nurse's Notes [facility] Name: Haroon Montana Age: 79 yrs Sex: Male : 1945 Arrival Date: 11/11/2024 Time: 13:11 Bed 2 Private MD: Diagnosis: Multiple fractures of ribs, left side;Acute, closed, nondisplaced left inferior pubic ramus fracture Presentation: 11/11 13:12 Chief complaint: EMS states: FALL 3 DAYS AGO, NOW WITH LEFT RIB PAIN. Coronavirus bp screen: At this time, the client does not indicate any symptoms associated with coronavirus-19. Ebola Screen: No symptoms or risks identified at this time. Initial Sepsis Screen: Does the patient meet any 2 criteria? No. Patient's initial sepsis screen is negative. Does the patient have a suspected source of infection? No. Patient's initial sepsis screen is negative. Risk Assessment: Do you want to hurt yourself or someone else? Patient reports no desire to harm self or others. Onset of symptoms is unknown. Care prior to arrival: IV initiated. 20 GA, in the right antecubital area. 13:12 Method Of Arrival: EMS: [facility] bp 13:12 Acuity: SILVIO 3 bp Triage Assessment: 13:14 General: Appears in no apparent distress. uncomfortable, Behavior is cooperative, bp appropriate for age, anxious. Pain: Complains of pain in left lateral anterior chest. EENT: No deficits noted. Neuro: No deficits noted. Cardiovascular: No deficits noted. Respiratory: No deficits noted. GI: No signs and/or symptoms were reported involving the gastrointestinal system. : No signs and/or symptoms were reported regarding the genitourinary system. Derm: No deficits noted. Musculoskeletal: No deficits noted. Historical: - Allergies: 13:14 No Known Allergies; bp - PMHx: 13:14 Hypercholesterolemia; Hypertension; PRE DIABETIC; bp - PSHx: 13:14 hernia repair; bp - Immunization history:: Adult Immunizations up to date. - Infectious Disease History:: Denies. - Social history:: Smoking status: Patient denies any tobacco usage or history of. - Family history:: not pertinent. - Hospitalizations: : The patient was recently seen at [facility]. Screenin:15 [facility] ED Fall Risk Assessment (Adult) History of falling in the last 3 months, bp including since admission Yes- single mechanical fall (1 pt) Confusion or Disorientation No (0 pts) Intoxicated or Sedated No (0 pts) Impaired Gait No (0 pts) Mobility Assist Device Used No (0 pt) Altered Elimination No (0 pt) Score/Fall Risk Level 0 - 2 = Low Risk Oriented to surroundings. Abuse screen: Denies threats or abuse. Denies injuries from another. Nutritional screening: No deficits noted. Nutritional screening: No deficits noted. 17:15 Tuberculosis screening: No symptoms or risk factors identified. bp Assessment: 13:15 General: Appears in no apparent distress. uncomfortable. bp 14:44 Reassessment: Patient appears in no apparent distress at this time. Patient and/or hb family updated on plan of care and expected duration. Pain level reassessed. Patient is alert, oriented x 3, equal unlabored respirations, skin warm/dry/pink. Vital Signs: 13:12 BP 150 / 60; Pulse 90; Resp 18; Temp 98; Pulse Ox 99% ; bp 14:48 BP 172 / 122; Pulse 97; Resp 17; Pulse Ox 98% on R/A; hb 15:45 BP 161 / 100; rn 15:47 BP 156 / 107; Pulse 100; Resp 20; Pulse Ox 100% ; bp 17:14 BP 156 / 95; Pulse 89; Resp 23; Pulse Ox 95% ; bp ED Course: 13:12 Patient arrived in ED. bp 13:14 Triage completed. bp 13:14 Naseem Rowe MD is Attending Physician. rn 13:14 Arm band placed on. bp 13:15 Patient has correct armband on for positive identification. bp 13:15 Maintain EMS IV. Dressing intact. Good blood return noted. Site clean \T\ dry. Gauge \T\ bp site: 20 RAC. Flushed with 10 mL NS. 13:16 Angel Montemayor, RN is Primary Nurse. bp 13:39 Head C Spine Mpr Wo Con In Process Unspecified. EDMS 13:39 Chest Abd Pelvis Wo Con In Process Unspecified. EDMS 14:25 XRAY Hip LEFT 2 view In Process Unspecified. EDMS 14:25 XRAY Humerus LEFT In Process Unspecified. EDMS 17:14 No provider procedures requiring assistance completed. IV discontinued, intact, bp bleeding controlled, No redness/swelling at site. Pressure dressing applied. 17:15 Provided Education on: NA. bp Administered Medications: 16:04 Drug: HYDROcodone-acetaminophen PO 5 mg-325 mg 1 tabs PO once Route: PO; bp 17:31 Follow up: Response: No adverse reaction bp Medication: 13:15 VIS not applicable for this client. bp Outcome: 15:50 Discharge ordered by . rn 17:14 Discharged to home via wheelchair, with family, bp 17:14 Condition: stable 17:14 Discharge instructions given to patient, family, Instructed on discharge instructions, follow up and referral plans. Demonstrated understanding of instructions, follow-up care, 17:31 Patient left the ED. bp Signatures: Dispatcher [employer] EDMS Naseem Rowe MD MD rn Baxter, Heather, RN RN Angel Nichole RN RN bp
[2024-11-11] MEDS ORDERED: HYDROCODONE/APAP 5/325 MG TAB ONE (16:02)
[2024-11-11 22:21] VITALS: TEMP 98
[2024-11-11 22:28] VITALS: BP 156/95; O2SAT 95
== END 2024-11-11 17:31 | disposition home or self-care (01) ==
LOC: ER 13:11
DX: S22.42XA Multiple fractures of ribs, left side, initial encounter for closed fracture (principal); S32.592A Other specified fracture of left pubis, initial encounter for closed fracture; W18.30XA Fall on same level, unspecified, initial encounter
CPT/HCPCS: 36415; 70450; 71250; 72125; 74176; 80048; 85025; 85610; 85730; 99284